=== PATIENT | male | born 1975 | race African-American/Black ===

== ENCOUNTER 2020-09-07 13:35 | Outpatient (CLI) | payer OTHER ==
--- NOTE | 2020-09-07 16:30 | RAD ---
LEFT KNEE TWO VIEWS: History: Disability exam FINDINGS: There is severe tricompartment arthritic changes of the knee. There is prominent spur formation of th e patellofemoral joint. No fractures. IMPRESSION: Marked arthritic changes of the knee. POS: [facility]
== END 2020-09-07 13:36 | disposition home or self-care (01) ==
LOC: BICRAD 13:35
PROVIDERS: ATTEND Internal Medicine
DX: Z02.71 Encounter for disability determination (principal); M17.12 Unilateral primary osteoarthritis, left knee